=== PATIENT | female | born 1975 | race Caucasian/White ===

== ENCOUNTER 2017-01-19 11:31 | Day surgery (SDC) | payer OTHER ==
[2017-01-18 13:43] VITALS: BMI 31.3
[2017-01-19] MEDS ORDERED: Fentanyl 100 MCG/2 ML VIAL ONE ×2 (12:24→12:59)
[2017-01-19] MEDS ORDERED: Midazolam HCl 2 mg/2 ml Vial ONE (12:24)
[2017-01-19] MEDS ORDERED: Propofol 200 MG/20 ML VIAL ONE (13:20)
[2017-01-19] MEDS ORDERED: Ondansetron HCl/PF 4 MG/2 ML Vial ONE (13:20)
[2017-01-19] MEDS ORDERED: Dexamethasone 20 MG/5 ML VIAL ONE (13:20)
[2017-01-19] MEDS ORDERED: Lidocaine 1% PF 5 ML VIAL ONE (13:20)
[2017-01-19] MEDS ORDERED: Zolpidem Tartrate 5 MG TAB PO PRN (13:36)
[2017-01-19] MEDS ORDERED: Ondansetron HCl/PF 4 MG/2 ML Vial IVP PRN (13:36)
[2017-01-19] MEDS ORDERED: HYDROcodone/Acetaminophen 10/325 mg Tablet PO PRN ×2 (13:36)
[2017-01-19] MEDS ORDERED: Ketorolac Tromethamine 30 MG/ML VIAL IVP PRN (13:36)
[2017-01-19] MEDS ORDERED: traMADol HCl 50 MG TAB PO PRN ×2 (13:36)
[2017-01-19] MEDS ORDERED: Ropivacaine 0.2% 550 ML 550 ML NERVE BLCK SCH (13:36)
[2017-01-19] MEDS ORDERED: Promethazine HCl 25 MG/ML VIAL IM PRN (13:36)
[2017-01-19] MEDS ORDERED: Fentanyl 100 MCG/2 ML VIAL IV PRN (13:36)
[2017-01-19] MEDS ORDERED: Ketorolac Tromethamine 30 MG/ML VIAL ONE (14:41)
[2017-01-19] MEDS ORDERED: Promethazine HCl 25 MG/ML VIAL ONE (16:44)
--- NOTE | 2017-01-19 21:21 | OP ---
DATE OF PROCEDURE: 01/19/2017 PROCEDURE PERFORMED: 1. Open reduction and internal fixation of radial head fracture. 2. Open reduction and internal fixation of right distal humerus lateral condyle fracture. PREOPERATIVE DIAGNOSES: Displaced right radial head fracture and displaced right distal lateral con dyle fracture. POSTOPERATIVE DIAGNOSES: Displaced right radial head fracture and displaced right distal lateral co ndyle fracture. COMPLICATIONS: None. ESTIMATED BLOOD LOSS: Minimal. SURGEON: Declan Garcia M.D. WASH MILL OPERATOR: Santino Merritt PA-C INDICATIONS: Ms. Brock is a 41-year-old female who has fallen fracturing her elbow. She was benjie cated for the above procedures to restore function and restore anatomic alignment of her fractures. Risks have been reviewed and she has elected to proceed with the operation. DESCRIPTION OF PROCEDURE: Ms. Brock was identified in the preoperative holding area. Her correct extremity was marked. She was carried to the operating room. She was positioned in supine. Gener al anesthesia was induced. A multidisciplinary timeout was performed. The right upper extremity wa s prepped and draped in sterile fashion. We began the procedure with a Janet approach to the elbow. We dissected down through the subcutane ous tissues to the fascia level. The fascia was incised. At this point, we examined the elbow join t. We exposed the distal humerus fracture with displaced lateral condyle and capitellum fracture. We then examined the radial head, which also showed significant comminution and fracture 30% of the radial head. We irrigated and cleared the bony edges. Next, we proceeded with open reduction and i nternal fixation of the radius. We gently reduced the radial head articular fracture fragment back into its anatomic position. We held this with a guidewire. We then placed a second guidewire. At this point, we placed two 3.0 mm partially threaded headless screws. These compressed the fracture and held it securely. We took x-ray images confirming hardware length. We moved to the capitellum. We reduced the capitellum using reduction clamp. We held this with K-w maria d fixation. We then placed 3.0 mm headless screws along the margin of the capitellum trying to av oid the articular surface, these traversed the articular fracture. We placed a fourth screw through the bed of the LCL footprint, which had been avulsed restoring the collateral ligament attachment. We took x-ray images once more. We then thoroughly irrigated with irrigation. We then closed with 0 Vicryl suture, 2-0 Vicryl suture, and then jake for the skin. A sterile dressing was applied at this point. The patient was taken to recovery room in good condition without complication.
--- NOTE | 2017-01-20 08:17 | RAD ---
TWO VIEWS OF THE RIGHT ELBOW: COMPARISON: 01/15/17. HISTORY: ORIF of radius and humeral fractures. FINDINGS/IMPRESSION: Two limited intraoperative fluoroscopic views of the right elbow were submitted for interpretation. There are screws seen in the radial head/neck and in the distal humerus fixating the previously see n fractures. POS: [facility]
== END 2017-01-19 17:30 | disposition home or self-care (01) ==
LOC: SDC 11:31
PROVIDERS: ATTEND Orthopaedic Surgery
PROC: 0PSF04Z Reposition Right Humeral Shaft with Internal Fixation Device, Open Approach (ICD-10-PCS; principal; 2017-01-19)
PROC: 0PSH04Z Reposition Right Radius with Internal Fixation Device, Open Approach (ICD-10-PCS; principal; 2017-01-19)
DX: S52.121A Displaced fracture of head of right radius, initial encounter for closed fracture (principal); S42.451A Displaced fracture of lateral condyle of right humerus, initial encounter for closed fracture; Z88.8 Allergy status to other drugs, medicaments and biological substances; Z79.899 Other long term (current) drug therapy; Z98.890 Other specified postprocedural states
CPT/HCPCS: 76001; 96374; A4306; C1713; J1100; J1885; J2001; J2250; J2405; J2550; J2704; J2795; J3010

== ENCOUNTER 2017-07-15 14:50 | Outpatient (CLI) | payer OTHER ==
--- NOTE | 2017-07-15 17:29 | MRI ---
PRE AND POSTCONTRAST ENHANCED MRI IMAGES CERVICAL SPINE: 07/15/17 HISTORY: Multiple sclerosis, G35. Multiplanar and multisequence pre and postcontrast enhanced MRI images cervical spine obtained. Comparison made to a previous exam from 05/22/15. No significant evidence of spinal cord masses or lesions seen. Minimal central broad based disc bulge s seen at C3-4, C5-6 and C6-7. This is unchanged since the previous exam. No significant evidence of spinal cord compression is seen. The neural foramen are patent. Previously noted right paratracheal mass is not longer visible and may have been surgically removed. IMPRESSION: No definite evidence of spinal cord abnormalities are masses seen. The central canal and neural luis en are patent without significant nerve root or spinal cord compression. POS: [facility]
--- NOTE | 2017-07-15 18:17 | MRI ---
BRAIN MRI WITH AND WITHOUT CONTRAST 07/15/17 COMPARISON: 05/22/15. HISTORY: 41-year-old female with multiple sclerosis. TECHNIQUE: Multiplanar and multisequence MRI imaging of the brain provided with and without contrast. FINDINGS: There is abnormal increased signal intensity involving the ventral aspect of the splenium of the julia us callosum and inferior aspect of the splenium of the corpus callosum. There is extensive periventri cular deep and subcortical white matter signal abnormality, consistent with the provided history of m ultiple sclerosis. When compared to the prior examination, the degree of periventricular white matter signal abnormality appears overall slightly more conspicuous, particularly in the regions of the atr ia of the lateral ventricles. A degree of this may be on the basis of technique, however. There are n o definite new lesions. On the precontrast T1 weighted imaging, many of the above described foci of abnormal T2 and FLAIR sig nal demonstrate decreased signal intensity, "black holes." The diffusion weighted imaging demonstrat es no evidence for acute infarction. The postcontrast imaging demonstrates no abnormal enhancement to suggest the presence of active demye lination. IMPRESSION: 1. Extensive abnormal signal abnormality involving the white matter in the corpus callosum, poss ibly minimally more prominent than on prior imaging although interval possible minimal progression ma y be technical in nature on the basis of imaging on a three Alejandrina system. No enhancement to suggest t he presence of active demyelination. POS: [facility]
== END 2017-07-15 14:51 | disposition home or self-care (01) ==
LOC: TBSIIMAG 14:50
PROVIDERS: ATTEND Psychiatry & Neurology Neurology
DX: G35 Multiple sclerosis (principal); R93.0 Abnormal findings on diagnostic imaging of skull and head, not elsewhere classified
CPT/HCPCS: 70553; 72156

== ENCOUNTER 2017-12-20 11:05 | Outpatient (CLI) | payer OTHER ==
--- NOTE | 2017-12-20 13:37 | ULT ---
ABDOMINAL ULTRASOUND: Date: 12-20-17 History: Abdominal distention. FINDINGS: There is a mobile echogenic focus seen within the gallbladder lumen measuring 2 cm suggestive of gall bladder calculus. There is no gallbladder wall thickening or pericholecystic fluid. The common duct i s normal in caliber measuring 0.5 cm in diameter. The limited visualized portions of the pancreas, visualized portions of the IVC and abdominal aorta a nd spleen demonstrate a normal sonographic appearance. The left hepatic lobe is not well visualized, but the remainder of the liver demonstrates a normal so nographic appearance. The kidneys demonstrate a normal sonographic appearance bilaterally with the right kidney measuring 9 .8 cm x 5.6 cm and the left kidney measuring 10.7 cm x 5.5 cm. Imaging of the urinary bladder demonstrates a heterogeneous cystic and solid mass which measures 6.6 cm x 6.8 cm x 6.7 cm. There is a post void residual of 754.5 ml. IMPRESSION: 1. Cystic and solid mass within the urinary bladder. Direct visualization is recommended. 2. No evidence of hydronephrosis, and the kidneys demonstrate a normal sonographic appearance. 3. Cholelithiasis. Code T POS: [facility]
== END 2017-12-20 11:06 | disposition home or self-care (01) ==
LOC: SCSULT 11:05
PROVIDERS: ATTEND Family Medicine
DX: R14.0 Abdominal distension (gaseous) (principal); R10.13 Epigastric pain; K80.20 Calculus of gallbladder without cholecystitis without obstruction; N32.9 Bladder disorder, unspecified
CPT/HCPCS: 76700

== ENCOUNTER 2018-01-03 11:25 | Day surgery (SDC) | payer OTHER ==
[2017-12-31 12:27] VITALS: BMI 32.1
[2018-01-03] MEDS ORDERED: Midazolam HCl 2 mg/2 ml Vial ONE (12:02)
[2018-01-03] MEDS ORDERED: Fentanyl 100 MCG/2 ML VIAL ONE ×2 (12:02→15:11)
[2018-01-03] MEDS ORDERED: CEFAZOLIN/Water 2 GM/20 ML SYRINGE ONE (12:19)
[2018-01-03] MEDS ORDERED: Promethazine HCl 25 MG/ML VIAL ONE (13:00)
[2018-01-03] MEDS ORDERED: Promethazine HCl 25 MG/ML VIAL IM PRN (14:04)
[2018-01-03] MEDS ORDERED: Ondansetron HCl/PF 4 MG/2 ML Vial IVP PRN (14:04)
[2018-01-03] MEDS ORDERED: Zolpidem Tartrate 5 MG TAB PO PRN (14:04)
[2018-01-03] MEDS ORDERED: HYDROcodone/Acetaminophen 10/325 mg Tablet PO PRN ×2 (14:04)
[2018-01-03] MEDS ORDERED: traMADol HCl 50 MG TAB PO PRN ×2 (14:04)
[2018-01-03] MEDS ORDERED: Ropivacaine 0.2% 550 ML 550 ML NERVE BLCK SCH (14:04)
[2018-01-03] MEDS ORDERED: Ketorolac Tromethamine 30 MG/ML VIAL IVP PRN (14:04)
[2018-01-03] MEDS ORDERED: Fentanyl 100 MCG/2 ML VIAL IV PRN (14:06)
--- NOTE | 2018-01-03 15:57 | OP ---
DATE OF PROCEDURE: 01/03/2018 OPERATION: Right elbow open debridement with osteophyte removal and soft tissue release. PREOPERATIVE DIAGNOSES: Right elbow contracture, status post distal humerus and radial head fracture . POSTOPERATIVE DIAGNOSES: Right elbow contracture, status post distal humerus and radial head fractur e. COMPLICATIONS: None. ESTIMATED BLOOD LOSS: Minimal. SURGEON: Declan Garcia M.D. ANESTHESIA: General plus regional. INDICATIONS: Ms. Brock is a 42-year-old female who fell 1 year ago. She fractured her right elbow in multiple areas. She was treated with open reduction internal fixation. She developed a contract ure of the elbow and is not proceeded with physical therapy. She has been indicated for open debride ment of the elbow with excision of the tip of the olecranon as well as coronoid process and anterior capsular release. Risks have been reviewed in detail. She has elected to proceed with the operation . DESCRIPTION OF PROCEDURE: Ms. Brock was identified in the preoperative holding area. Her correct extremity was marked. She was carried to the operating room. She was positioned supine. General an esthesia was induced. A multidisciplinary timeout was performed. The right upper extremity was prep ped and draped in sterile fashion. We began the procedure with anterior lateral approach to the distal humerus. We went to the patient' s previous incision. We dissected down through the subcutaneous tissue to the fascia which was opene d. We entered the elbow joint lateral to the capitellum and worked anteriorly. We excised extensive scar tissue in the elbow joint between the capitellum and the radial head. We exposed the cartilagi nous surface. There was some cartilage injury to the anterior capitellum. There was no exposed hard tovar. The headless screws were well buried and not prominent, so these were left in situ. At this p oint, we performed an anterior capsular release by releasing the capsule from the anterior humerus us ing an elevator. Once we had a full release, we were able to visualize the tip of the coronoid proce ss. This was removed with an osteotome, taking approximately 8 mm of coronoid tip bone. At this poi nt, we then made a flap posteriorly. We worked back to the olecranon process. We then split the tri ceps tendon and worked down to the olecranon fossa. At this point, we excised the tip of the olecran on again with an osteotome. We used a rongeur to debride the olecranon fossa which was extensively s carred as well. At this point, we manipulated the elbow. The patient was able to achieve full exten barbara with no contracture. We had 130 degrees of elbow flexion. There was full pronation and supinat ion without difficulty. At this point, we thoroughly irrigated. We then closed with 0 Vicryl suture , 2-0 Vicryl suture and a soft dressing was placed. The patient was taken to the recovery room in go od condition.
[2018-01-03] MEDS ORDERED: HYDROcodone/Acetaminophen 5/325 mg Tablet ONE (16:18)
== END 2018-01-03 17:00 | disposition home or self-care (01) ==
LOC: SDC 11:25
PROVIDERS: ATTEND Orthopaedic Surgery
PROC: 0RNL0ZZ Release Right Elbow Joint, Open Approach (ICD-10-PCS; principal; 2018-01-03)
DX: M24.521 Contracture, right elbow (principal); E89.0 Postprocedural hypothyroidism; I05.0 Rheumatic mitral stenosis; Z79.899 Other long term (current) drug therapy; Z88.8 Allergy status to other drugs, medicaments and biological substances; Z98.890 Other specified postprocedural states
CPT/HCPCS: 96374; A4306; J2250; J2550; J2795; J3010

== ENCOUNTER 2018-01-10 10:02 | Outpatient (CLI) | payer OTHER ==
[~2018-01-10 10:02] MED LIST: ISOVUE-370 76%-LOCM 1 ML ONE
== END 2018-01-10 10:03 | disposition home or self-care (01) ==
LOC: BICCT 10:02
PROVIDERS: ATTEND Urology
DX: N32.89 Other specified disorders of bladder (principal); N20.0 Calculus of kidney
CPT/HCPCS: 74178

== ENCOUNTER 2018-11-04 08:47 | Outpatient (CLI) | payer OTHER ==
--- NOTE | 2018-12-02 14:54 | MMO ---
Bilateral MAMMO Bilat Screen [facility]. CLINICAL HISTORY: Patient is 42 years old and is seen for screening. The patient has the following The patient has no personal history of cancer. VIEWS: The views performed were: bilateral craniocaudal with tomosynthesis and bilateral mediolateral oblique with tomosynthesis. MAMMOGRAM FINDINGS: There are scattered fibroglandular densities. There are no suspicious masses, suspicious calcifications, or new areas of architectural distortion. IMPRESSION: THERE IS NO MAMMOGRAPHIC EVIDENCE OF MALIGNANCY. A ROUTINE FOLLOW-UP MAMMOGRAM IN 1 YEAR IS RECOMMENDED. THE RESULTS OF THIS EXAM WERE SENT TO THE PATIENT. ACR BI-RADS Category 1 - Negative MAMMOGRAPHY NOTE: 1. A negative mammogram report should not delay a biopsy if a dominant of clinically suspicious mass is present. 2. Approximately 10% to 15% of breast cancers are not detected by mammography. 3. Adenosis and dense breasts may obscure an underlying neoplasm. Reported by: GILBERT HIGGINS MD Electonically Signed: [id number]
== END 2018-11-04 08:48 | disposition home or self-care (01) ==
LOC: BICMAMMO 08:47
PROVIDERS: ATTEND Family Medicine
DX: Z12.31 Encounter for screening mammogram for malignant neoplasm of breast (principal)
CPT/HCPCS: 77063; 77067